=== PATIENT | male | born 1960 | race African-American/Black ===

== ENCOUNTER 2021-03-08 09:38 | Inpatient (IN) | payer BC ==
[2021-03-08] MEDS ORDERED: Acetaminophen 325 MG TAB PO PRN (14:41)
[2021-03-08] MEDS ORDERED: Ondansetron PF 4 MG/2 ML Vial IVP PRN (14:41)
[2021-03-08] MEDS ORDERED: Ondansetron ODT 4 MG TAB PO PRN (14:41)
[2021-03-08] MEDS ORDERED: Acetaminophen 650 MG Suppository PR PRN (14:41)
[2021-03-08] MEDS ORDERED: Guaifenesin DM 100-10/5 ML UDCUP PO PRN (14:41)
[2021-03-08] MEDS ORDERED: Dextrose 50% Abboject 50 ML SYRINGE SLOW IVP PRN (14:43)
[2021-03-08] MEDS ORDERED: Dextrose 5% in Water 1,000 ML IV PRN (14:43)
[2021-03-08] MEDS ORDERED: HumaLOG 300 UNITS/3 ML VIAL SC PRN ×2 (14:43)
[2021-03-08] MEDS ORDERED: hydrALAZINE 20 MG/ML VIAL SLOW IVP PRN (14:59)
[2021-03-08] MEDS ORDERED: Amlodipine 5 MG TAB PO SCH (15:00)
[2021-03-08] MEDS: Sodium Chloride 0.9% 1,000 ML IV SCH (16:01)
[2021-03-08 16:12] VITALS: BMI 33.9
[2021-03-08] MEDS: Heparin 5,000 UNITS/ML VIAL SC SCH (19:59)
[2021-03-08 20:28] LABS: Bilirubin Neg (Negative); Blood, Urine 25 (Negative); Clarity Clear (Clear); Glucose, Urine (Dipstick) Normal (Negative); Ketone, Urine Negative (Negative); Leukocyte Negative (Negative); Nitrite Negative (Negative); Protein, Urine (Dipstick) 15 mg/dl (Neg-Trace); Specific Gravity, Urine 1.015 (1.002-1.036)
[2021-03-08 20:39] LABS: Bacteria/HPF None Seen HPF (None Seen); RBC/HPF 0-3 HPF (0-3); Squamous Epithelial 0-3 HPF (0-3)
[2021-03-08] MEDS ORDERED: metFORMIN 500 MG TAB PO SCH (21:15)
[2021-03-08] MEDS ORDERED: Rosuvastatin 10 MG TAB PO SCH (21:15)
[2021-03-09] MEDS: Sodium Chloride 0.9% 1,000 ML IV SCH ×2 (04:15→12:57)
[2021-03-09 04:22] LABS: #Monocytes 1.1 10x3/uL (0.0-1.1); #Neutrophils 7.4 10x3/uL (1.5-8.4); %Basophils 0.1 % (0.0-2.0); %Eosinophils 0.4 % (0.0-6.0); %Lymphocytes 18.1 % (18.0-47.0); %Monocytes 10.3 % (0.0-10.0); %Neutrophils 70.8 % (40.0-75.0); Hemoglobin 9.8 g/dL (13.5-17.5); Mean Corpuscular HGB CONC 32.2 g/dL (32.0-36.0); Mean Corpuscular Hemoglobin 30.1 pg (27.0-33.0); Mean Corpuscular Volume 93.3 fl (81.2-95.1); Mean Platelet Volume 9.8 fl (7.4-10.4); Platelet Count 207 10x3/uL (150-450); RBC Distribution Width 12.8 % (11.5-14.5); Red Blood Cell (RBC) Count 3.26 10x6/uL (4.32-5.72); White Blood Cell (WBC) Count 10.5 10x3/uL (3.5-10.5)
[2021-03-09 04:36] LABS: Anion Gap 13 mmol/L (10-20); BUN (Urea Nitrogen) 15 mg/dL (8.4-25.7); Calc. Creatinine Clearance 126 mL/min (70-130); Calcium 8.6 mg/dL (7.8-10.44); Carbon Dioxide 21 mmol/L (22-29); Chloride 109 mmol/L (98-107); Glucose 104 mg/dL (70-105); Potassium 3.8 mmol/L (3.5-5.1); Sodium 139 mmol/L (136-145)
[2021-03-09] MEDS: Heparin 5,000 UNITS/ML VIAL SC SCH (08:35)
[2021-03-09] MEDS ORDERED: Amlodipine 5 MG TAB PO SCH (09:00)
[2021-03-09 10:10] VITALS: TEMP 98.2
[2021-03-09 14:53] VITALS: BP 130/82
== END 2021-03-09 14:25 | disposition home or self-care (01) | DRG 871 ==
LOC: CSHTELE 09:38
PROVIDERS: ADMIT Hospitalist; ATTEND Hospitalist
PROC: 8E0ZXY6 Isolation (ICD-10-PCS; principal; 2021-03-08)
DX: A41.89 Other specified sepsis (principal); U07.1 COVID-19; A08.4 Viral intestinal infection, unspecified; N28.1 Cyst of kidney, acquired; I10 Essential (primary) hypertension; E11.9 Type 2 diabetes mellitus without complications; E78.5 Hyperlipidemia, unspecified; M10.9 Gout, unspecified; D64.9 Anemia, unspecified; R31.9 Hematuria, unspecified; Z87.891 Personal history of nicotine dependence; Z79.84 Long term (current) use of oral hypoglycemic drugs; Z79.899 Other long term (current) drug therapy; Z88.8 Allergy status to other drugs, medicaments and biological substances
CPT/HCPCS: 36416; 80048; 81001; 85025; 87086; J0360; J1644; J1956; J7050